=== PATIENT | male | born 1985 | race African-American/Black ===

== ENCOUNTER 2018-05-24 12:20 | Emergency (ER) | payer SELFPAY ==
[2018-05-24 12:26] VITALS: BP 157/98
--- NOTE | 2018-05-24 12:48 | ER Document Report ---
ED Hand/Wrist Injury - General Chief Complaint: Hand Pain Stated Complaint: RIGHT HAND SWOLLEN Time Seen by Provider: 05/24/18 12:27 Notes: 32-year-old male to emergency department chief complaint of hand infection. Patient states that he frequently gets ingrown hairs. Works with his hands as a rich. Gets an occasional infection and is able to feliz it himself with some of his rich razor blades but this time seems to have gotten infected. Was unable to get any pus to come out. Denies any fevers, chills, sweats. Pain is located in the second digit on the right hand on the dorsum at the proximal interphalangeal joint of the second digit on the right hand. TRAVEL OUTSIDE OF THE [place] IN LAST 30 DAYS: No - HPI Injury to: Hand Onset: Yesterday Where: Home - Related Data Allergies/Adverse Reactions: Sulfa (Sulfonamide Antibiotics) Allergy (Verified 05/24/18 12:22) sulfamethoxazole [From Bactrim] Allergy (Verified 05/24/18 12:22) trimethoprim [From Bactrim] Allergy (Verified 05/24/18 12:22) Past Medical History - General Information source: Patient - Social History Smoking Status: Current Every Day Smoker Chew tobacco use (# tins/day): No Frequency of alcohol use: Occasional Drug Abuse: None Lives with: Family Family History: Reviewed & Not Pertinent Patient has suicidal ideation: No Patient has homicidal ideation: No - Past Medical History Cardiac Medical History: Reports: Hx Hypercholesterolemia Renal/ Medical History: Denies: Hx Peritoneal Dialysis Review of Systems - Review of Systems Constitutional: denies: Fever, Malaise, Weakness EENT: No symptoms reported Cardiovascular: No symptoms reported Respiratory: No symptoms reported Skin: See HPI, Other - Swelling of the second digit on the right hand possible abscess versus cellulitis on the right hand. Neurological/Psychological: denies: Weakness, Paralysis, Numbness Physical Exam - Vital signs Vitals: Temp Pulse Resp BP Pulse Ox 98.2 F 87 18 157/98 H 98 05/24/18 12:25 05/24/18 12:25 05/24/18 12:25 05/24/18 12:25 05/24/18 12:25 Interpretation: Normal - Respiratory Respiratory status: No respiratory distress Chest status: Nontender Breath sounds: Normal Chest palpation: Normal - Cardiovascular Rhythm: Regular Heart sounds: Normal auscultation Murmur: No - Extremities General upper extremity: Normal color, Normal ROM, Other - Patient has full range of motion of the joints on the second digit of his right hand. There is mild amount of swelling noted on the dorsum of the right hand. Mild tenderness to the touch. - Skin Skin Temperature: Warm Skin Moisture: Dry Skin Color: Normal, Other - Mild amount of redness and swelling noted on the dorsum of the right hand at the proximal interphalangeal joint second digit right hand. No lymphangitic streaking. Mild warmth to the touch. Course - Re-evaluation Re-evalutation: 05/24/18 12:45 Bedside ultrasound performed. There is no obvious fluid collection which would be amenable to drainage. Will start patient on oral antibiotics. Offered IV antibiotics the patient would like to defer at this time. Patient advised to return in 24 hours for recheck if symptoms get worse. - Vital Signs Vital signs: Temp Pulse Resp BP Pulse Ox 98.2 F 87 18 157/98 H 98 05/24/18 12:25 05/24/18 12:25 05/24/18 12:25 05/24/18 12:25 05/24/18 12:25 Discharge - Discharge Clinical Impression: Cellulitis of finger of right hand Condition: Good Disposition: HOME, SELF-CARE Instructions: Cellulitis ([facility]) Additional Instructions: If redness is getting worse, swelling getting worse or for other concerns please return in 24 hours for recheck. Prescriptions: Clindamycin HCl [Cleocin 300 mg Capsule] 300 mg PO QID 10 Days #40 capsule
== END 2018-05-24 13:00 | disposition home or self-care (01) ==
LOC: ER 12:20
DX: L03.011 Cellulitis of right finger (principal); M79.641 Pain in right hand; E78.00 Pure hypercholesterolemia, unspecified; Z88.2 Allergy status to sulfonamides
CPT/HCPCS: 99283

== ENCOUNTER 2019-09-04 12:32 | Emergency (ER) | payer SELFPAY ==
--- NOTE | 2019-09-04 12:46 | ER Document Report ---
ED Medical Screen (RME) - General Chief Complaint: Chest Pain Stated Complaint: CHEST PAIN Time Seen by Provider: 09/04/19 12:38 Notes: Healthy 34-year-old male presents the emergency department with chief complaint of chest pain that started yesterday. He was at work and when he stood up he suddenly had acute central chest pain that caused him to have to sit back down. In the interval time. It is been intermittent and described as sharp, does not radiate, no nausea, no diaphoresis. Patient has associated shortness of breath but states that he has had a cough for about 2 weeks and he feels like his chest is "tight". No fevers or chills, no abdominal pain.. Exam: Well-appearing no acute distress, lungs clear to auscultation in all saba, regular cardiac rate and rhythm, S1-S2 heard I have greeted and performed a rapid initial assessment of this patient. A comprehensive ED assessment and evaluation of the patient, analysis of test results and completion of medical decision making process will be conducted by an additional ED providers. TRAVEL OUTSIDE OF THE [place] IN LAST 30 DAYS: No - Related Data Allergies/Adverse Reactions: Sulfa (Sulfonamide Antibiotics) Allergy (Verified 05/24/18 12:22) sulfamethoxazole [From Bactrim] Allergy (Verified 05/24/18 12:22) trimethoprim [From Bactrim] Allergy (Verified 05/24/18 12:22) Past Medical History - Past Medical History Cardiac Medical History: Reports: Hx Hypercholesterolemia Renal/ Medical History: Denies: Hx Peritoneal Dialysis
[2019-09-04 13:20] LABS: ABSOLUTE EOSINOPHILS # (AUTO) 0.1 10^3/uL (0.0-0.6); ABSOLUTE LYMPHOCYTES (AUTO) 2.4 10^3/uL (0.5-4.7); ABSOLUTE MONOCYTES (AUTO) 0.7 10^3/uL (0.1-1.4); ABSOLUTE NEUT (AUTO) 2.2 10^3/uL (1.7-8.2); BASOPHILS % (AUTO) 0.6 % (0-2); EOSINOPHILS % (AUTO) 1.1 % (0-6); HEMATOCRIT 51.1 % (37.9-51.0); HEMOGLOBIN 17.7 g/dL (13.5-17.0); LYMPHOCYTES % (AUTO) 44.7 % (13-45); MEAN CORPUSCULAR HEMOGLOBIN 33.5 pg (27.0-33.4); MEAN CORPUSCULAR HGB CONC 34.8 g/dL (32.0-36.0); MEAN CORPUSCULAR VOLUME 96 fl (80-97); MONOCYTES % (AUTO) 12.9 % (3-13); PLATELET COUNT 269 10^3/uL (150-450); RED CELL DISTRIBUTION WIDTH 13.4 % (11.5-14.0); SEGMENTED NEUTROPHILS % (AUTO) 40.7 % (42-78); TOTAL CELLS COUNTED % (AUTO) 100 %; WHITE BLOOD COUNT 5.4 10^3/uL (4.0-10.5)
[2019-09-04 13:40] LABS: ALBUMIN 4.2 g/dL (3.5-5.0); ALKALINE PHOSPHATASE 48 U/L (38-126); ANION GAP 6 (5-19); ASPARTATE AMINO TRANSFERASE 33 U/L (17-59); BILIRUBIN,DIRECT 0.1 mg/dL (0.0-0.4); BILIRUBIN,TOTAL 1.1 mg/dL (0.2-1.3); BLOOD UREA NITROGEN 9 mg/dL (7-20); CALCIUM 9.5 mg/dL (8.4-10.2); CARBON DIOXIDE 29 mmol/L (22-30); CHLORIDE 104 mmol/L (98-107); GLUCOSE 91 mg/dL (75-110); POTASSIUM 3.9 mmol/L (3.6-5.0); TOTAL PROTEIN 7.9 g/dL (6.3-8.2)
--- NOTE | 2019-09-04 14:17 | RADIOLOGY REPORT (SQ) ---
EXAM DESCRIPTION: CHEST 2 VIEWS COMPLETED DATE/TIME: 09/04/2019 1:42 pm REASON FOR STUDY: CP/SOB COMPARISON: None. EXAM PARAMETERS: NUMBER OF VIEWS: two views TECHNIQUE: Digital Frontal and Lateral radiographic views of the chest acquired. RADIATION DOSE: NA LIMITATIONS: none FINDINGS: LUNGS AND PLEURA: No opacities, masses or pneumothorax. No pleural effusion. MEDIASTINUM AND HILAR STRUCTURES: No masses or contour abnormalities. HEART AND VASCULAR STRUCTURES: Heart normal size. No evidence for failure. BONES: No acute findings. HARDWARE: None in the chest. OTHER: No other significant finding. IMPRESSION: NO ACUTE RADIOGRAPHIC FINDING IN THE CHEST. TECHNICAL DOCUMENTATION: JOB ID: [id number] [employer]- All Rights Reserved Reading location - IP/workstation name: [email or web address]
[2019-09-04] MEDS ORDERED: DEXAMETHASONE SOD PHOS INJ 10 MG/1 ML VIAL IV ONE (14:49)
--- NOTE | 2019-09-04 14:49 | ER Document Report ---
ED General - General Chief Complaint: Chest Tightness Stated Complaint: CHEST PAIN Time Seen by Provider: 09/04/19 12:38 TRAVEL OUTSIDE OF THE [place] IN LAST 30 DAYS: No - HPI Notes: Patient is a 34-year-old male with history of hypertension, currently not medicated, who presents complaining of nasal congestion/discharge, sinus pressure, dry nonproductive cough over the past 2 weeks. Patient states he has had a sore throat over the past couple days as well. Patient states that yesterday he did develop a sharp sternal chest pain while at work, that went away thereafter and has been somewhat intermittent until this morning. Patient states that he has not had any recurrence of the pain since this morning. He did not have any sweats or dizziness associated. He is able to eat and drink without difficulty otherwise. He is urinating normally and having normal bowel movements. He does smoke cigarettes. Denies any prolonged immobilization, distance travel, recent surgery/trauma, personal cancer history, hormone use, or previous DVT/PE. Denies any headache, fever, neck pain, palpitations, syncope, shortness of breath, wheeze, dyspnea, abdominal pain, nausea/vomiting/diarrhea, urinary retention, dysuria, hematuria, back pain, or rash. - Related Data Allergies/Adverse Reactions: Sulfa (Sulfonamide Antibiotics) Allergy (Verified 05/24/18 12:22) sulfamethoxazole [From Bactrim] Allergy (Verified 05/24/18 12:22) trimethoprim [From Bactrim] Allergy (Verified 05/24/18 12:22) Past Medical History - Social History Smoking Status: Current Every Day Smoker Family History: Reviewed & Not Pertinent Patient has suicidal ideation: No Patient has homicidal ideation: No - Past Medical History Cardiac Medical History: Reports: Hx Hypercholesterolemia Renal/ Medical History: Denies: Hx Peritoneal Dialysis Review of Systems - Review of Systems -: Yes All other systems reviewed and negative Physical Exam - Vital signs Vitals: Pulse Ox 97 09/04/19 12:43 - Notes Notes: PHYSICAL EXAMINATION: GENERAL: Well-appearing, well-nourished and in no acute distress. A&Ox4. Answers questions appropriately. Moves comfortably w/o notable distress HEAD: Atraumatic, normocephalic. EYES: Pupils equal round and reactive to light, extraocular movements intact, sclera anicteric, conjunctiva are normal. ENT: EAC clear b/l. TM's intact b/l without erythema, fluid, or perforation. Nares patent and with clear discharge. oropharynx mild erythema without ex udates. 2+ tonsilar hypertrophy with mild erythema no exudate. No palatine shift. Uvula midline. No tongue protrusion. No drooling, hoarseness, or airway compromise. Moist mucous membranes. No sinus tenderness. NECK: Normal range of motion, supple without lymphadenopathy. No rigidity/meningismus. LUNGS: Breath sounds clear to auscultation bilaterally and equal. No wheezes rales or rhonchi. No retractions HEART: Regular rate and rhythm without murmurs, rubs, gallops. ABDOMEN: Soft, nontender, nondistended abdomen. No guarding, no rebound. Normal bowel sounds present. No CVA tenderness bilaterally. No hepatosplenomegaly. NEUROLOGICAL: Normal speech, normal gait. Ext's: no edema. No LE asymmetry. Noam neg b/l. PSYCH: Normal mood, normal affect. SKIN: Warm, Dry, normal turgor, no rashes or lesions noted. Course - Re-evaluation Re-evalutation: 09/04/19 15:59 Patient is an afebrile, well-hydrated 34-year-old male who presents to the ED with acute URI/atypical chest pain suspect viral and benign. Vitals are acceptable without any significant tachycardia, tachypnea, or hypoxia. PE is otherwise unremarkable. Lungs CTAB. Patient is nontoxic-appearing and is tolerating p.o. without any difficulties. Pt given decadron IV. CBC, CMP, EKG/cardiac enzymes 2, chest x-ray are all unremarkable for any acute pathology. Patient has a heart score of <=3, Wells score of 0, and is PERC negative. Patient does not have any chest pain, dyspnea, or shortness of breath. Patient's presentation and symptomatology creates low suspicion for ACS, PE, pneumothorax, pericarditis, dissection, respiratory compromise, severe dehydration, sepsis, meningitis, or other systemic emergent condition at this ti ms. Patient is aware that his condition can change from initial presentation and he needs to monitor symptoms closely and seek medical attention for any acute changes. Pt is feeling better and would like to go home. Recommend conservative measures for symptoms. Recheck with your PCM in 2-3 days. Consider consult with Cardiology. Return to the ED with any worsening/concerning symptoms otherwise as reviewed in discharge. Patient is in agreement.. I will refill his HCTZ that he is supposed to be on for HTN. - Vital Signs Vital signs: Temp Pulse Resp BP Pulse Ox 98.4 F 93 14 174/123 H 97 09/04/19 12:44 09/04/19 12:44 09/04/19 14:00 09/04/19 13:28 09/04/19 14:00 - Laboratory Result Diagrams: 09/04/19 12:55 09/04/19 12:55 Laboratory results interpreted by me: 09/04/19 12:55 Hgb 17.7 H Hct 51.1 H MCH 33.5 H Seg Neutrophils % 40.7 L Discharge - Discharge Clinical Impression: Atypical chest pain, Acute URI Condition: Stable Disposition: HOME, SELF-CARE Instructions: Chest Pain of Unclear Cause ([facility]), Upper Respiratory Illness ([facility]) Additional Instructions: Maintain adequate fluid intake tylenol/ibuprofen as needed alternating every 3 hours for fever/body ache over the counter cold medication as needed for symptoms Humidified air may help Wash your hands regularly Wear a mask when coughing F/u: with your PCM in 3-5 days for a recheck Return to the ED with any fever, altered mental status/behavior, chest pain, palpitations, syncope, headache, neck pain/stiffness, shortness of breath, chest pains, wheezing, drooling, trouble swallowing/breathing, abdominal pain, n/v/d, rash, or worsening/concerning symptoms otherwise. Prescriptions: Benzonatate [Tessalon Perle 100 mg Capsule] 100 mg PO Q8HP PRN #15 cap PRN Reason: Hydrochlorothiazide [Hydrodiuril 25 mg Tablet] 25 mg PO QAM #30 tablet Forms: Elevated Blood Pressure, Smoking Cessation Education Referrals: [facility] [Provider Group] - Follow up as needed
[2019-09-04 16:12] VITALS: BP 162/113
--- NOTE | 2019-09-04 20:13 | EKG REPORT ---
SEVERITY:- ABNORMAL ECG - SINUS RHYTHM PROBABLE LEFT ATRIAL ABNORMALITY LEFT VENTRICULAR HYPERTROPHY BORDERLINE PROLONGED QT INTERVAL : Confirmed by: Keri Linn MD 04-Sep-2019 20:13:31
== END 2019-09-04 16:18 | disposition home or self-care (01) ==
LOC: ER 12:32
DX: J06.9 Acute upper respiratory infection, unspecified (principal); R07.89 Other chest pain; R09.81 Nasal congestion; R05 Cough; J02.9 Acute pharyngitis, unspecified; J35.1 Hypertrophy of tonsils; I10 Essential (primary) hypertension; F17.200 Nicotine dependence, unspecified, uncomplicated; Z88.2 Allergy status to sulfonamides; Z88.1 Allergy status to other antibiotic agents
CPT/HCPCS: 93005; 36415; 87070; 87880; 85025; 80053; 84484; 71046; 93010; J1100